=== PATIENT | male | born 1975 | race Hispanic/Latino ===

== ENCOUNTER 2017-08-31 09:28 | Outpatient (CLI) | payer BC ==
--- NOTE | 2017-08-31 11:42 | RAD ---
FOUR VIEWS RIGHT KNEE: History: 8 months of pain. Swelling. Comparison: None. FINDINGS: There appear to be chronic change involving the superolateral patella. Mild degenerative change invol ving the medial and lateral compartments. Trace suprapatellar effusion. No acute fracture. IMPRESSION: Chronic changes as above. POS: [facility]
== END 2017-08-31 09:29 | disposition home or self-care (01) ==
LOC: MADRAD 09:28
PROVIDERS: ATTEND Family Medicine
DX: S89.91XA Unspecified injury of right lower leg, initial encounter (principal); M17.11 Unilateral primary osteoarthritis, right knee